=== PATIENT | male | born 1940 | race Caucasian/White ===

== ENCOUNTER 2017-10-19 13:59 | Outpatient (CLI) | payer MEDICARE, OTHER | END 2017-10-19 14:00 | disposition home or self-care (01) | LOC: BICMAMMO 13:59 | PROVIDERS: ATTEND Family Medicine | DX: M81.8 Other osteoporosis without current pathological fracture (principal); M85.859 Other specified disorders of bone density and structure, unspecified thigh | CPT/HCPCS: 77080 ==

== ENCOUNTER 2020-06-02 13:36 | Outpatient (CLI) | payer MEDICARE, OTHER ==
[2020-06-02] MEDS ORDERED: Iopamidol 370 76% 100 ML VIAL ONE (14:25)
--- NOTE | 2020-06-02 14:49 | CT ---
Chest CT without contrast: 06/02/2020 COMPARISON: 11/20/2019 HISTORY: Reevaluate pulmonary nodule TECHNIQUE: Axial CT imaging at 3 mm intervals through the chest with IV contrast. Coronal and sagitta l reformatted imaging obtained. FINDINGS: The visualized upper abdomen appears grossly unremarkable. There is scattered atherosclerotic calcification of the abdominal aorta and its branches. No pleural, pericardial, or mediastinal fluid. Multifocal atherosclerotic calcification of the coronary arteries. Multifocal atherosclerotic calcifi cation of the aortic arch and descending thoracic aorta. No axillary, hilar, or mediastinal lymphadenopathy. No endobronchial lesion is noted on this examination. No discrete nodule is noted within the right upper lobe. No discrete nodule is noted within the right middle lobe. Mild nonspecific linear reticular nodular density is suspected within the anterior medial aspect of t he right lower lobe, stable. There is a right lower lobe pulmonary nodule on image 64 measuring 5-6 mm, slightly more conspicuous than on the prior examination, better seen on the prior coronal reforma tted imaging. There is a nodule within the inferior lateral aspect of the left lower lobe measuring 6-7 mm, not sig nificantly changed when compared to the prior exam. No pulmonary parenchymal nodule is appreciated within the left upper lobe. There is multilevel degenerative change within the lower thoracic spine and imaged upper lumbar spine with disc space narrowing, lateral osteophyte formation, and vacuum disc formation. No worrisome lytic or blastic bone lesion is noted. No acute osseous abnormality is seen. IMPRESSION: Nonspecific bilateral lower lobe pulmonary nodules. Continued follow-up advised. Recommen d follow-up chest CT in 6 months.
== END 2020-06-02 13:37 | disposition home or self-care (01) ==
LOC: BICCT 13:36
PROVIDERS: ATTEND Family Medicine
DX: R91.8 Other nonspecific abnormal finding of lung field (principal)
CPT/HCPCS: 71260; 82565; Q9967

== ENCOUNTER 2020-09-02 09:53 | Outpatient (CLI) | payer MEDICARE, OTHER | END 2020-09-02 09:54 | disposition home or self-care (01) | LOC: BICRAD 09:53 | PROVIDERS: ATTEND Internal Medicine Pulmonary Disease | DX: R06.00 Dyspnea, unspecified (principal) | CPT/HCPCS: 71046 ==

== ENCOUNTER 2021-12-08 10:48 | Outpatient (CLI) | payer MEDICARE, OTHER | END 2021-12-08 10:49 | disposition home or self-care (01) | LOC: BICCT 10:48 | PROVIDERS: ATTEND Internal Medicine Critical Care Medicine | DX: R91.8 Other nonspecific abnormal finding of lung field (principal) | CPT/HCPCS: 71260; 82565 ==